=== PATIENT | female | born 1995 | race Caucasian/White ===

== ENCOUNTER 2019-11-08 09:48 | Outpatient (RCR) | payer OTHER, SELFPAY ==
[2019-10-23 17:38] VITALS: BP 111/80; PULSE 92
== END 2019-11-12 07:24 | disposition home or self-care (01) ==
LOC: ANHOBOP 09:48
PROVIDERS: Family Provider Obstetrics & Gynecology; PCP Family Medicine; Visit Provider Obstetrics & Gynecology
DX: O36.8130 Decreased fetal movements, third trimester, not applicable or unspecified (principal); Z3A.36 36 weeks gestation of pregnancy; Z3A.38 38 weeks gestation of pregnancy
CPT/HCPCS: 59025

== ENCOUNTER 2019-11-11 06:28 | Inpatient (IN) | payer OTHER, SELFPAY ==
[2019-11-11] VITALS (191 sets, daily range): BP systolic 80–133; BP diastolic 40–92; PULSE 68–164; TEMP 36.5–37.3; O2SAT 99–100; BMI 44.4
[2019-11-11 07:25] LABS: Basophils Percent Auto 0.2 % (0.2-1.2); Eosinophils Percent Auto 0.2 % (0-4.4); Hemoglobin 11.1 g/dL (12.0-15.0); Immature Granulocyte Absolute 0.04 K/mm3 (0.00-0.031); Immature Granulocyte Percent A 0.5 % (0-0.5); Lymphocytes Absolute Auto 2.15 K/mm3 (0.9-3.2); Lymphocytes Percent Auto 25.5 % (18.3-44.2); Mean Corpuscular HGB Conc 33.6 g/dl (32-36); Mean Corpuscular Hemoglobin 27.8 pg (26-34); Mean Corpuscular Volume 82.7 fl (80-100); Monocytes Absolute Auto 0.5 K/mm3 (0.1-0.6); Monocytes Percent Auto 6.4 % (2.6-8.5); Neutrophils Absolute Auto 5.7 K/mm3 (1.3-6.7); Neutrophils Percent Auto 67.2 % (45.5-73.1); Platelet Count Result 204 k/mm3 (150-375); Red Blood Count 3.99 M/mm3 (4.2-5.4); White Blood Count 8.4 K/mm3 (4.5-10.0)
--- NOTE | 2019-11-11 07:42 | WPDOBADMIT ---
Obstetrics - Admit Note Admission Note: record reviewed. No pertinent additions to the history and/or any subsequent changes in the physical findings that are not consistent with the expected course of the were found. Additions to the history and/or subsequent changes in the physical findings follow. G1 at 39+1 for induction of labor. Cervix 3/50/-2. AROM with scant fluid. IUPC placed easily. Continue pitocin. GBS negative.
[2019-11-11] MEDS: OXYTOCIN 30 UNITS/NS 500 ML 30 UNITS/500 ML BAG IV CONT (08:09)
[2019-11-11] MEDS: LACTATED RINGERS 1,000 ML 125 ML IV CONT ×3 (08:10→14:15)
--- NOTE | 2019-11-11 08:10 | LDADM ---
This patient, Joyce Brito, was admitted to Labor/Delivery/Recovery 104 on 11/11/19 at 06:28. Plans for labor, pain management and were discussed with patient. Patient/family oriented to hospital policies and general routines including ID bracelet, bed and alarms, visiting hours, pain management, procedures, bathroom and other care routines, personal items, smoking policy, room service/diet and guest tray routines, infant security routines, and visiting hours. Patient/Family are encouraged to report perceived risks to care and to ask questions if they do not understand what they are told or what they should do. See OBIX for further documentation.
--- NOTE | 2019-11-11 09:34 | WPDANESEPP ---
Anes - Eval Pre Procedure Procedure: Labor Epidural Date/Time: 11/11/19 09:34 Surgeon: alison Pre Op Diagnosis: iol Patient Data Age: 24 Gender: F Height: 1.7 m Weight: 128.64 kg Last Vital Signs Temp 37.1 C 11/11/19 09:27 Pulse 89 11/11/19 09:31 BP 99/46 L 11/11/19 09:31 Pulse Ox 100 11/11/19 09:32 Allergies Allergy/AdvReac Type Severity Reaction Status Date / Time Sulfa (Sulfonamide Allergy Unknown Hives Verified 10/23/19 13:32 Antibiotics) Home Medications Medication Instructions Recorded Confirmed Type PNV cmb#95-ferrous fumarate-FA 1 tablet PO DAILY 10/23/19 10/23/19 History [] Laboratory Tests 11/11/19 11/11/19 11/11/19 06:51 06:51 06:51 WBC 8.4 K/mm3 K/mm3 (4.5-10.0) RBC 3.99 M/mm3 L M/mm3 (4.2-5.4) Hgb 11.1 g/dL L g/dL (12.0-15.0) Hct 33.0 % L % (37.0-47.0) MCV 82.7 fl fl (80-100) MCH 27.8 pg pg (26-34) MCHC 33.6 g/dl g/dl (32-36) RDW 14.0 % % (11.5-14.5) Plt Count 204 k/mm3 k/mm3 (150-375) MPV 11.0 fl H fl (7.4-10.4) Immature Gran % (Auto) 0.5 % % (0-0.5) Neut % (Auto) 67.2 % % (45.5-73.1) Lymph % (Auto) 25.5 % % (18.3-44.2) [place] % (Auto) 6.4 % % (2.6-8.5) Eos % (Auto) 0.2 % % (0-4.4) Baso % (Auto) 0.2 % % (0.2-1.2) Lymph # (Auto) 2.15 K/mm3 K/mm3 (0.9-3.2) [place] # (Auto) 0.5 K/mm3 K/mm3 (0.1-0.6) Eos # (Auto) 0.0 K/mm3 K/mm3 (0-0.3) Baso # (Auto) 0.0 K/mm3 K/mm3 (0.0-0.1) Abs Immat Gran (auto) 0.04 K/mm3 H K/mm3 (0.00-0.031) Absolute Neuts (auto) 5.7 K/mm3 K/mm3 (1.3-6.7) Absolute Nucleated RBC 0.0 K/mm3 K/mm3 (0.0-0.012) Nucleated RBC % 0.0 % % (0.0-0.2) RPR Pending Blood Type O Positive Antibody Screen Negative Patient hx anesthesia problems: none Family hx anesthesia problems: none [facility] Past Medical History Medical History (Updated 11/11/19 @ 09:36 by Ana Ahuja CRNA) Anxiety IBS (irritable bowel syndrome) Morbid obesity Family History Family History Grandparent Diabetes mellitus Hypertension High cholesterol Grandparent Diabetes mellitus Social History Social History Smoking status: Former smoker Tobacco type: e-cigarettes/vaping Second hand tobacco smoke exposure: Yes Substance use: never Spiritual care concerns: No Exam Day of Procedure 11/11/19 09:34 Patient weight: morbidly obese Heart: regular rate and rhythm Lungs: normal air movement Airway: Mallampati scale class II and class III Neurological: alert and oriented
[2019-11-11 11:55] LABS: Rapid Plasma Reagin Non-Reactive (NonReactive)
[2019-11-11] MEDS: ONDANSETRON INJ 4 MG/2 ML VIAL IV PUSH (16:48)
--- NOTE | 2019-11-11 19:59 | PM.OBPRVD ---
OB - Delivery Note Procedure Delivery date: 11/11/19 Procedure: Induction method: AROM and per pitocin protocol Delivery monitor: external FHT, external uterine and internal uterine Route of delivery: Laceration description: Perineal - 2nd Degree Delivery repair: vicryl (2-0) Specimen: No Estimated blood loss (mL): 785 Anesthesia type: Epidural Disposition: floor Narrative: She had multiple small lacerations of perineum and periurethral that were bleeding while doing the repair. Visualization was difficult. laboratory development technician donned gloves to aid in visulaization and exposure then hemostasis achieved with sutures [place] Baby Date of : 11/11/19 Time of : 19:20 Weeks of gestation at delivery: 39 gender: Male Weight (pounds): 6 Weight (ounces): 6 presentation: vertex position: Right Occiput Anterior Placenta delivery description: Spontaneous cord vessel description: 3 Vessels and Clamped/Cut score one minute: 9 score five minutes: 9
[2019-11-11] MEDS: OXYTOCIN 30 UNITS/NS 500 ML 30 UNITS/500 ML BAG 125 UNITS IV CONT (20:31)
[2019-11-11] MEDS: WITCH HAZEL 40 PADS 1 PAD TOPICAL (22:58)
[2019-11-12] VITALS: BP 107/53; PULSE 110; RESP 14; TEMP 37.2; O2SAT 99
[2019-11-12] MEDS: IBUPROFEN 600 MG TABLET PO (02:30)
[2019-11-12 05:26] LABS: Hematocrit 25.5 % (37.0-47.0); Hemoglobin 8.8 g/dL (12.0-15.0)
--- NOTE | 2019-11-12 07:35 | PM.OBPNVD ---
OB - PN: Subj Subjective Date/time seen: 11/12/19 07:35 Patient comments: no complaints, pain well controlled and other (Lochia similar to menses) [place] baby status: doing well OB - PN: Obj Data Labs CBC & Chem 7: 11/12/19 05:06 Labs: Laboratory Results - last 24 hr 11/11/19 11/11/19 11/12/19 06:51 06:51 05:06 Hgb 8.8 L Hct 25.5 L RPR Non-reactive Blood Type O Positive Antibody Screen Negative OB - PN A/P Plan day: 1 (s/p vaginal delivery, doing well) Plan: routine care Time Spent With Patient Time: Total time spent is greater than 50% in coordination of care (as documented) at patient's floor/unit and/or counseling patient: Exam Const: General: no acute distress GI: Inspection: other (Fundus firm and nontender at umbilicus) GI Palp: Yes Soft to palpation and No Tenderness to palpation present (GI) Extrem: General: no edema
[2019-11-12] MEDS: DOCUSATE SODIUM 100 MG CAPSULE PO ×2 (07:46→15:57)
[2019-11-12] MEDS: POLYSACCHARIDE IRON COMPLEX 150 MG CAPSULE PO ×2 (07:46→15:56)
[2019-11-12] MEDS: MULTIVIT/MIN/PREN/FOL AC/IRON TABLET 1 TAB PO (07:46)
[2019-11-12] MEDS: LANOLIN (LANSINOH) 7.5 GM CREAM 1 APPLIC TOPICAL (07:47)
--- NOTE | 2019-11-12 07:51 | PM.OBDSVD ---
DS: Discharge Diagnosis Discharge Diagnosis (1) : Code(s): Z34.90 - Encounter for supervision of normal , unspecified, unspecified trimester Status: Acute OB - DS: Summary OB Procedures : None OB Procedures Intrapartum: Spontaneous Vag Delivery OB Procedures: : None Peripartum Data Delivery Method: Natural Vaginal Laceration description: Perineal - 2nd Degree complications: none Status at Discharge Functional status at discharge: independent ambulation Overall status at discharge: patient is progressing back to baseline Time Spent with Patient Time attestation: Total time spent providing and/or coordinating discharge services: Time spent: Less than 30 minutes DS: Data Data Completed and Pending Labs on day of discharge: Labs from last 24 hours 11/12/19 11/11/19 11/11/19 05:06 06:51 06:51 Hgb 8.8 L Hct 25.5 L RPR Non-reactive Blood Type O Positive Antibody Screen Negative Discharge Plan Discharge Attending physician on discharge: Danielle Gomez Discharging Clinician: Alisa Camejo Anticipated Discharge Date/Time: 11/13/19 12:00 Patient Disposition: Home, Self-Care Activity: may shower and pelvic rest Diet: regular Discharge Instructions: Education: Mom and Baby Guide Given to: Mother Follow-Up: Call your delivering provider's office for an appointment to be seen in: 6 Weeks Mom and baby should come to the [facility] for the follow-up appointment. Appointment Date/Time: November 15, 2019 at 11:00 am What to expect at your follow-up visit: Blood Pressure Check Physical Assessment Call [phone] if you are unable to keep your appointment time. BREAST CARE: 1. Wear a snug supportive bra. 2. For engorgement discomfort: Breast Feeding: A. Apply warm moist washcloths B. Express milk as needed to relieve engorgement C. Wear loose clothing Bottle Feeding: A. May apply ice packs 3. For sore nipples: A. Identify correct latch-on B. Apply warm moist washcloths before and after nursing C. Air dry nipples after nursing D. May apply Lansinoh cream to nipples EPISIOTOMY/PERINEAL CARE: 1. Until bleeding stops, use your erin bottle after urinating 2. Change your pad frequently throughout the day 3. You may take sitz baths several times a day (fill your bathtub with warm water and soak for 20 minutes.) Do NOT bathe in the water 4. No tub baths until seen by your physician - You may shower ACTIVITY: 1. Rest as much as possible. 2. Do not exercise or lift anything heavier than your baby (such as laundry or other children.) 3. Avoid stairs or driving as much as possible. 4. Do not put anything into the vagina. No douching, tampons, or sexual activity until seen by physician. NOTIFY PHYSICIAN IF YOU HAVE ANY QUESTIONS OR IF ANY OF THE FOLLOWING SYMPTOMS OCCUR: 1. If your episiotomy or incision becomes red, swollen, or more painful than what you have experienced in the hospital. 2. If your vaginal bleeding becomes foul smelling. 3. If your vaginal bleeding becomes more heavy than a period or if your bleeding changes from pink to bright red. However, you may pass an occasional walnut-sized clot once or twice for the first week . 4. If you experience a sharp, shooting pain in you calves. 5. If you discover a hard, reddened area on your breast or if you experience flu-like symptoms. DIET: 1. Eat regular, well-balanced meals. 2. Drink plenty of fluids daily. If , drink to thirst. Stand Alone Forms: General Discharge Information Follow-up/Referrals: Danielle Gomez MD [Physician] - 4 Weeks Discharge Medications: New polysaccharide iron complex 150 mg iron Capsule 150 mg PO BIDWM 30 Days Qty: 60 RF: 0 docusate sodium 100 mg Capsule 100 mg PO BID PRN (Leighann
[2019-11-12 08:20] VITALS: BP 86/49; PULSE 82; RESP 18; TEMP 36.9; O2SAT 98
--- NOTE | 2019-11-12 12:45 | PC.NURSE ---
Consulted with patient, mother reports infant is sleepy and does not make attempts to latch, once at breast does not suckle. Mother has been given a nipple shield to assist with latching. I Discussed nipple shield precautions and possible complications. Instructions given on application and cleaning of shield. Patient able to return demonstration on proper application of shield. Discussed the need to initiate pumping if infant continues to nurse with the shield. Patient verbalizes understanding. Reviewed feeding cues, frequencies, duration of feedings, feeding elimination flow sheet, and signs of adequate intake. Demonstrated stimulation techniques to wake for feeding. Assisted with infant to breast with shield. Reviewed positioning/alignment in cross cradle, holding breast in U hold and guided asymmetrical latch on. After several attempts infant was able to latch correctly. held nipple shield in his mouth and made no effort to suck. Small amount of formula to shield and allowed infant to suckle and returned to breast with no suckling noted. Advised mother to allow to attempt 10-15 minutes, mother/FOB will then supplement. Feeding plan will be to attempt for 10-15 minutes every three hours before if feeding cues noted, then supplement 15mls and pump for 15 minutes. Advised mother to initiate pumping. Mother has her own pump to use.
--- NOTE | 2019-11-12 13:30 | PC.NURSE ---
Instructions given on breast pump care and usage, pumping schedule, nipple care, and collection and storage of breast milk. Encouraged [id number], breast massage and manual expression to stimulate supply. Pumping log provided and reviewed. Assessed patient for correct flange size, placement and draw. Patient verbalizes and demonstrates understanding of instructions.
[2019-11-12 19:20] VITALS: BP 126/74; PULSE 108; RESP 20; TEMP 36.8
[2019-11-13 08:00] VITALS: BP 111/64; PULSE 101; RESP 18; TEMP 36.5
--- NOTE | 2019-11-13 10:40 | PM.OBPNVD ---
OB - PN: Subj Subjective Date/time seen: 11/13/19 10:40 OB - PN: Obj Data Labs CBC & Chem 7: 11/12/19 05:06 OB - PN A/P Plan day: 2 Plan: routine care and discharge home (Follow up 4 weeks) Time Spent With Patient Time: Total time spent is greater than 50% in coordination of care (as documented) at patient's floor/unit and/or counseling patient: Review of Systems Review of Systems: All systems reviewed & are unremarkable except as noted in HPI and below Exam Const: General: comfortable Chest: Breast/axilla inspection: normal inspection of the breasts Resp: Effort & Inspection: normal respiratory effort Cardio: Rate: regular rate GI: Auscultation: normal bowel sounds Other: Struggles with IBS. Currently a little constipated but did have a bm within the last hour. Psych: Appearance: grossly normal Affect: normal affect Attitude: cooperative Judgement: Good judgement present (Psych)
[2019-11-13] MEDS: POLYSACCHARIDE IRON COMPLEX 150 MG CAPSULE PO (11:56)
[2019-11-13] MEDS: MULTIVIT/MIN/PREN/FOL AC/IRON TABLET 1 TAB PO (11:56)
[2019-11-13] MEDS: DOCUSATE SODIUM 100 MG CAPSULE PO (11:56)
[2019-11-13] MEDS: WITCH HAZEL 40 PADS 1 PAD TOPICAL (11:57)
[2019-11-13] MEDS: BENZOCAINE 20% AER SPR (*SP) 56 GM CAN 1 SPRAY TOPICAL (11:57)
[2019-11-15 11:22] VITALS: BP 114/76; PULSE 109; RESP 20; TEMP 37.7; O2SAT 100
== END 2019-11-13 12:43 | disposition home or self-care (01) | DRG 807 ==
LOC: ANHLDR 06:34 → ANHOB2 23:26
PROVIDERS: Admitting Provider Obstetrics & Gynecology; PCP Family Medicine; Visit Provider Obstetrics & Gynecology
DX: O99.62 Diseases of the digestive system complicating childbirth (principal); Z37.0 Single live birth; Z3A.39 39 weeks gestation of pregnancy; O70.1 Second degree perineal laceration during delivery; O71.82 Other specified trauma to perineum and vulva; K58.9 Irritable bowel syndrome, unspecified; O99.214 Obesity complicating childbirth; E66.01 Morbid (severe) obesity due to excess calories; O99.344 Other mental disorders complicating childbirth; F41.9 Anxiety disorder, unspecified
CPT/HCPCS: 36415; 85014; 85018; 85025; 86592; 86850; 86900; 86901; A9270; J2405; J2590; J2795; J7120

== ENCOUNTER 2021-07-03 10:48 | Outpatient (CLI) | payer OTHER, SELFPAY ==
[2021-07-03 11:36] LABS: SARS-CoV-2 Ag Negative (Negative)
== END 2021-07-03 10:49 | disposition home or self-care (01) ==
PROVIDERS: PCP Family Medicine; Visit Provider Physician Assistant
DX: J02.9 Acute pharyngitis, unspecified (principal); Z20.822 Contact with and (suspected) exposure to COVID-19
CPT/HCPCS: 87426; C9803

== ENCOUNTER 2021-07-13 11:05 | Outpatient (CLI) | payer OTHER, SELFPAY ==
[2021-07-13 12:02] LABS: SARS-CoV-2 Ag Negative (Negative)
[2021-07-13 12:52] LABS: SARS-CoV-2 RNA PCR Positive (Negative)
== END 2021-07-13 11:06 | disposition home or self-care (01) ==
LOC: CHSLAB 11:07
PROVIDERS: PCP Physician Assistant; Visit Provider Physician Assistant
DX: U07.1 COVID-19 (principal)
CPT/HCPCS: 87426; C9803; U0003; U0005

== ENCOUNTER 2022-08-22 11:19 | Outpatient (CLI) | payer OTHER, SELFPAY ==
[2022-08-22 13:09] LABS: Beta HCG Quantitative < 2.39 mIU/ML
[2022-08-28 05:08] LABS: Progesterone 0.5 ng/mL (***)
== END 2022-08-22 11:20 | disposition home or self-care (01) ==
LOC: ANHLAB 11:24
PROVIDERS: PCP Physician Assistant; Visit Provider Obstetrics & Gynecology
DX: O20.0 Threatened abortion (principal); Z3A.00 Weeks of gestation of pregnancy not specified
CPT/HCPCS: 36415; 84144; 84702

== ENCOUNTER 2022-09-16 12:19 | Outpatient (CLI) | payer OTHER, SELFPAY ==
[2022-09-20 05:07] LABS: Progesterone 16.4 ng/mL (***)
== END 2022-09-16 12:20 | disposition home or self-care (01) ==
PROVIDERS: PCP Physician Assistant; Visit Provider Advanced Practice Midwife
DX: N92.6 Irregular menstruation, unspecified (principal)
CPT/HCPCS: 36415; 84144

== ENCOUNTER 2022-10-15 07:13 | Outpatient (CLI) | payer OTHER, SELFPAY ==
[2022-10-20 04:04] LABS: Progesterone 9.5 ng/mL (***)
== END 2022-10-15 07:14 | disposition home or self-care (01) ==
LOC: ANHLAB 07:15
PROVIDERS: PCP Physician Assistant; Visit Provider Advanced Practice Midwife
DX: Z31.9 Encounter for procreative management, unspecified (principal)
CPT/HCPCS: 36415; 84144

== ENCOUNTER 2022-11-13 06:44 | Outpatient (CLI) | payer OTHER, SELFPAY ==
[2022-11-17 05:56] LABS: Progesterone 26.2 ng/mL (***)
== END 2022-11-13 06:45 | disposition home or self-care (01) ==
LOC: ANHLAB 06:47
PROVIDERS: PCP Physician Assistant; Visit Provider Advanced Practice Midwife
DX: Z31.9 Encounter for procreative management, unspecified (principal)
CPT/HCPCS: 36415; 84144

== ENCOUNTER 2023-02-28 06:44 | Outpatient (RCR) | payer OTHER, SELFPAY ==
[2023-03-01 06:51] LABS: Progesterone 7.2 ng/mL (***)
== END 2023-05-27 23:59 | disposition home or self-care (01) ==
LOC: ANHLAB 06:44
PROVIDERS: PCP Physician Assistant; Visit Provider Advanced Practice Midwife
DX: N91.2 Amenorrhea, unspecified (principal)
CPT/HCPCS: 36415; 84144; 84702

== ENCOUNTER 2023-04-01 09:26 | Day surgery (SDC) | payer OTHER, SELFPAY ==
--- NOTE | ~2023-04-01 | US_ITS ---
US OB transvaginal DATE: 04/01/2023 11:11 INDICATION: Active heavy vaginal bleeding and cramping TECHNIQUE: Real-time imaging via transvaginal approach COMPARISON: None FINDINGS: The uterus measures approximately 11.8 cm height, 5.8 cm AP and 6.3 cm transverse dimension . There is an approximately 10 x 5 x 11 x 26 mm fluid collection in the very lower uterine segment endo metrial cavity, with a small focal area of echogenicity which might be pole and/or yolk sac. Th e endometrial ankle above this area measures up to 8.6 mm anteroposterior dimension. The findings are likely due to impending with retained products of a failed . No heartbeat is detected. No abnormal pelvic free fluid collection is detected. The ovaries are not visualized. IMPRESSION: Probable in process Reviewed, dictated and finalized at [facility]. Reviewed, dictated and finalized at [facility]. IMPRESSION: Probable in process
[2023-04-01 09:33] VITALS: BP 123/86; PULSE 115; RESP 18; TEMP 36.7; O2SAT 100
[2023-04-01 10:02] LABS: Basophils Percent Auto 0.5 % (0.2-1.2); Eosinophils Absolute Auto 0.1 K/mm3 (0-0.3); Eosinophils Percent Auto 1.3 % (0-4.4); Hematocrit 36.8 % (37.0-47.0); Hemoglobin 11.9 g/dL (12.0-15.0); Immature Granulocyte Absolute 0.02 K/mm3 (0.00-0.031); Immature Granulocyte Percent A 0.2 % (0-0.5); Lymphocytes Absolute Auto 1.99 K/mm3 (0.9-3.2); Lymphocytes Percent Auto 23.6 % (18.3-44.2); Mean Corpuscular HGB Conc 32.3 g/dl (32-36); Mean Corpuscular Hemoglobin 26.3 pg (26-34); Mean Corpuscular Volume 81.2 fl (80-100); Mean Platelet Volume 9.9 fl (7.4-10.4); Monocytes Absolute Auto 0.6 K/mm3 (0.1-0.6); Monocytes Percent Auto 6.9 % (2.6-8.5); Neutrophils Absolute Auto 5.7 K/mm3 (1.3-6.7); Neutrophils Percent Auto 67.5 % (45.5-73.1); Platelet Count Result 283 k/mm3 (150-375); Red Blood Count 4.53 M/mm3 (4.2-5.4); Red Cell Distribution Width 14.8 % (11.5-14.5); White Blood Count 8.5 K/mm3 (4.5-10.0)
[2023-04-01] MEDS: SODIUM CHLORIDE 0.9% IV 1,000 ML 999 ML IV CONT (10:03)
[2023-04-01] MEDS: MORPHINE SULFATE (*CRX) 4 MG/ML INJ IV PUSH (10:03)
[2023-04-01 10:12] LABS: Alanine Aminotransferase 16 U/L (6-35); Albumin Level 4.3 g/dL (3.5-5.1); Alkaline Phosphatase 94 U/L (38-126); Anion Gap 8 mmol/L (8-16); Aspartate Amino Transferase 21 U/L (14-36); Bilirubin,Total 0.5 mg/dL (0.2-1.3); Blood Urea Nitrogen 9 mg/dL (7-17); Calcium 8.9 mg/dL (8.4-10.2); Carbon Dioxide 25 mmol/L (22-30); Chloride 103 mmol/L (98-107); Estimated CRCL calculation 195 ml/min; Estimated Glomerular Filt Rate > 60; Glucose 106 mg/dL (65-110); Potassium 3.9 mmol/L (3.4-5.0); Sodium 136 mmol/L (137-145)
--- NOTE | 2023-04-01 10:22 | ED.GENADULT ---
HPI - General Adult General Chief complaint: Vaginal Bleeding Stated complaint: miscarriage Time Seen by Provider: 04/01/23 09:41 History of Present Illness HPI narrative: Joyce Brito is a 27 y/o female who presents with reports of being went to her scheduled OB appointment 5 days ago where she thought she was about 8 weeks and the ultrasound showed a non viable that estimated about 6 weeks. She states that she then scheduled a D&C for tomorrow with Dr. Cooper. She states that she started to have light vaginal bleeding 2 days ago and then started to have heavy bleeding/ passing large clots today with heavy cramping. Related Data Home Medications Medication Instructions Recorded Confirmed vit no.95-ferrous 1 tablet PO DAILY 10/23/19 10/23/19 fumarate 28 mg-folic acid 800 mcg tablet () Allergies Allergy/AdvReac Type Severity Reaction Status Date / Time Sulfa (Sulfonamide Allergy Unknown Hives Verified 04/01/23 10:01 Antibiotics) Review of Systems Review of Systems: CONSTITUTIONAL: Denies fever, chills, or sweats. EYES: Denies visual changes, redness, or discharge. ENT: Denies rhinorrhea, congestion, sore throat, or otalgia. CARDIOVASCULAR: Denies chest pain, palpitations, or edema. RESPIRATORY: Denies cough or dyspnea. GASTROINTESTINAL: Complains of severe abdominal cramping, Denies nausea, vomiting, or diarrhea. GENITOURINARY: Denies dysuria or hematuria. SKIN: Denies rash or itching. MUSCULOSKELETAL: Denies back pain, joint pain, or myalgia. NEUROLOGIC: Denies headache, numbness, dizziness, or weakness. PSYCHIATRIC: Denies anxiety or depression. PMFSH Past Medical History Medical History Anxiety IBS (irritable bowel syndrome) Morbid obesity Family History Family History Grandparent Diabetes mellitus Hypertension High cholesterol Grandparent Diabetes mellitus Social History Social History Smoking status: Former smoker Tobacco type: e-cigarettes/vaping Second hand tobacco smoke exposure: Yes Substance use: never Spiritual care concerns: No Exam Narrative: GENERAL: Well-appearing, well-nourished, appears to be uncomfortable HEAD: Normocephalic, atraumatic. EYES: PERRLA and EOMI. ENT: Nares clear, no rhinorrhea or epistaxis. Mucous membranes moist. Oropharynx without tonsillar hypertrophy exudate or other lesions. NECK: Supple. No adenopathy or masses. No carotid bruits or JVD CHEST: Clear to auscultation. No respiratory distress. No wheezes rales or rhonchi HEART: Regular rate and rhythm. No murmur heard. Normal peripheral pulses. ABDOMEN: Soft, nontender, nondistended, normal active bowel sounds. EXTREMITIES: Normal range of motion. No edema. SKIN: Warm, dry, no rash. NEURO: No focal deficits. Alert and oriented x3. PSYCH: Normal mood and affect. Course Vital Signs Vital signs: Vital Signs Temperature 36.7 C 04/01/23 09:33 Pulse Rate 115 H 04/01/23 09:33 Respiratory Rate 18 04/01/23 09:33 Blood Pressure 123/86 04/01/23 09:33 Pulse Oximetry 100 04/01/23 09:33 Oxygen Delivery Room Air 04/01/23 09:33 Temperature 36.7 C 04/01/23 09:33 Pulse Rate 115 H 04/01/23 09:33 Respiratory Rate 18 04/01/23 09:33 Blood Pressure 123/86 04/01/23 09:33 Pulse Oximetry 100 04/01/23 09:33 Oxygen Delivery Room Air 04/01/23 09:33 Medical Decision Making MDM Narrative Medical decision making narrative: On exam pt is noted to be uncomfortable, she reports passing a golf ball sized clot this morning and once here she passed tissue that we were able to collect and send to pathology Patient with continued cramping and discomfort She does not believe she has needed Rhogam before Plan to hydrate/ treat her pain/ check basic labs
--- NOTE | 2023-04-01 10:44 | PC.NURSE ---
Products of conception collected, hand delivered to prosthetic technician [facility]
[2023-04-01] MEDS: fentaNYL CITRATE INJ (*CRX) 100 MCG/2 ML VIAL 50 MCG IV PUSH (11:42)
[2023-04-01 13:10] VITALS: BP 118/72; PULSE 93; RESP 16; TEMP 36.6; O2SAT 100
[2023-04-01] MEDS: LACTATED RINGERS 1,000 ML 30 ML IV CONT (13:10)
--- NOTE | 2023-04-01 13:15 | WPDANESEPPF ---
Anes - Initial Pre Proc Eval Procedure: Operation Date: 04/01/23 14:15 Proposed Procedures p Suction Dilatation and Curettage - Ifeoma Cooper MD Date/Time: 04/01/23 13:15 Surgeon: Ifeoma Cooper MD Pre Op Diagnosis: miscarriage Patient Data Age: 27 Gender: F Height: 1.7 m Weight: 131.09 kg Last Vital Signs Temp 36.7 C 04/01/23 09:33 Pulse 115 H 04/01/23 09:33 Resp 18 04/01/23 09:33 BP 123/86 04/01/23 09:33 Pulse Ox 100 04/01/23 09:33 O2 Del Method Room Air 04/01/23 09:33 Allergies Allergy/AdvReac Type Severity Reaction Status Date / Time Sulfa (Sulfonamide Allergy Unknown Hives Verified 04/01/23 10:01 Antibiotics) Home Medications Medication Instructions Recorded Confirmed Type vit no.95-ferrous 1 tablet PO DAILY 10/23/19 10/23/19 History fumarate 28 mg-folic acid 800 mcg tablet () docusate sodium 100 mg capsule 100 mg PO BID PRN Constipation 30 11/13/19 Rx days polysaccharide iron complex 150 mg 150 mg PO BIDWM 30 days #60 caps 11/13/19 Rx iron capsule Laboratory Tests 04/01/23 09:54 WBC 8.5 K/mm3 (4.5-10.0) RBC 4.53 M/mm3 (4.2-5.4) Hgb 11.9 L D g/dL (12.0-15.0) Hct 36.8 L % (37.0-47.0) MCV 81.2 fl (80-100) MCH 26.3 pg (26-34) MCHC 32.3 g/dl (32-36) RDW 14.8 H % (11.5-14.5) Plt Count 283 k/mm3 (150-375) MPV 9.9 fl (7.4-10.4) Immature Gran % (Auto) 0.2 % (0-0.5) Neut % (Auto) 67.5 % (45.5-73.1) Lymph % (Auto) 23.6 % (18.3-44.2) [place] % (Auto) 6.9 % (2.6-8.5) Eos % (Auto) 1.3 % (0-4.4) Baso % (Auto) 0.5 % (0.2-1.2) Lymph # (Auto) 1.99 K/mm3 (0.9-3.2) [place] # (Auto) 0.6 K/mm3 (0.1-0.6) Eos # (Auto) 0.1 K/mm3 (0-0.3) Baso # (Auto) 0.0 K/mm3 (0.0-0.1) Abs Immat Gran (auto) 0.02 K/mm3 (0.00-0.031) Absolute Neuts (auto) 5.7 K/mm3 (1.3-6.7) Absolute Nucleated RBC 0.0 K/mm3 (0.0-0.012) Nucleated RBC % 0.0 % (0.0-0.2) Sodium 136 L mmol/L (137-145) Potassium 3.9 mmol/L (3.4-5.0) Chloride 103 mmol/L (98-107) Carbon Dioxide 25 mmol/L (22-30) Anion Gap 8 mmol/L (8-16) BUN 9 mg/dL (7-17) Creatinine 0.50 L mg/dL (0.7-1.0) Estim Creat Clear Calc 195 ml/min Estimated GFR > 60 (59 - ) Glucose 106 mg/dL (65-110) Calcium 8.9 mg/dL (8.4-10.2) Total Bilirubin 0.5 mg/dL (0.2-1.3) AST 21 U/L (14-36) ALT 16 U/L (6-35) Alkaline Phosphatase 94 U/L (38-126) Total Protein 8.0 g/dL (6.3-8.2) Albumin 4.3 g/dL (3.5-5.1) Beta HCG, Quant 8699.70 mIU/ML Blood Type O Positive Antibody Screen Negative Screen Not Reportable Baby's Blood Type Not Reportable Baby's YANE Not Reportable Doses of RhIg Required 0 Patient hx anesthesia problems: none Family hx anesthesia problems: post op nausea/vomiting Results Review: All pre-operative results and documents have been reviewed as part of the pre-operative evaluation. [facility] Past Medical History Medical History Anxiety IBS (irritable bowel syndrome) Morbid obesity Family History Family History Grandparent Diabetes mellitus Hypertension High cholesterol Grandparent Diabetes mellitus Social History Social History Smoking status: Former smoker Tobacco type: e-cigarettes/vaping Second hand tobacco smoke exposure: Yes Substance use: never Spiritual care concerns: No Anes - Eval Final PreProcedure Day of Procedure 04/01/23 13:15 Patient weight: morbidly obese Heart: regular rate and rhythm Lungs: clear to auscultation Airway: Mallampati scale class II Neurological: alert and oriented Last oral intake: >/= 8 hours ASA cla
--- NOTE | 2023-04-01 13:19 | PM.IMHP ---
H&P: HPI History of Present Illness Date/Time: 04/01/23 13:19 Chief Complaint: Vaginal bleeding Narrative: This patient is a 27-year-old multi with incomplete miscarriage, vaginal bleeding-hemorrhage, severe pain. We agreed to perform suction D&C. She understands there is risk. She understands the procedure. She understands injuries may occur that result in hospitalization, more surgery, and severe illness. She denies any nausea, vomiting, i fever, chills. She denies any chest pain or shortness of breath Review of Systems Review of Systems: All systems reviewed & are unremarkable except as noted in HPI and below Constitutional: Constitutional: Denies chills, Denies fatigue, Denies fever(s) and Denies weakness Eyes: Eyes: Denies blurry vision, Denies change in vision, Denies loss of peripheral vision, Denies loss of vision, Denies other visual disturbances and Denies eye pain ENT: Denies vertigo, Denies dizziness, Denies hearing loss, Denies mouth pain, Denies nasal obstruction, Denies neck mass and Denies neck pain Cardiovascular: Cardiovascular: Denies chest pain, Denies diaphoresis, Denies syncope, Denies leg edema and Denies dyspnea Respiratory: Respiratory: Denies chest congestion, Denies cough, Denies hemoptysis, Denies dyspnea and Denies wheezing Gastrointestinal: Gastrointestinal: Denies abdominal pain, Denies constipation, Denies diarrhea, Denies nausea and Denies vomiting Genitourinary: Genitourinary: Denies hematuria, Denies change in libido, Denies nocturia, Denies genital lesions, Denies flank pain and Denies urinary urgency Musculoskeletal: Musculoskeletal: Denies abnormal gait, Denies back pain, Denies myalgias, Denies arthralgias, Denies joint swelling, Denies muscle weakness and Denies neck pain Integumentary/Breasts: Skin/Breast: Denies swelling, Denies breast pain, Denies breast mass, Denies dry skin, Denies nipple discharge, Denies unusual bruising and Denies jaundice Neurologic: Denies Neuro-related abnormal movements, Denies Abnormal speech present, Denies abnormal gait, Denies behavioral changes, Denies confusion, Denies vertigo, Denies dizziness, Denies syncope, Denies loss of vision, Denies memory loss, Denies convulsions and Denies weakness Psychiatric: Psychiatric: Denies abnormal sleep pattern, Denies behavioral changes, Denies change in libido, Denies confusion, Denies depression, Denies anhedonia and Denies memory loss Endocrine: Endocrine: Reports no additional endocrine complaints, Denies change in libido and Denies fatigue Hematologic/Lymphatic: Hematologic/Lymphatic: Reports no additional hematologic/lymphatic complaints Allergic/Immunologic: Allergic/Immunologic: Reports no additional allergic/immunologic complaints and Denies wheezing PMFSH Past Medical History Medical History Anxiety IBS (irritable bowel syndrome) Morbid obesity Family History Family History Grandparent Diabetes mellitus Hypertension High cholesterol Grandparent Diabetes mellitus Social History Social History Smoking status: Former smoker Tobacco type: e-cigarettes/vaping Second hand tobacco smoke exposure: Yes Substance use: never Spiritual care concerns: No Meds Home Medications and Allergies Home Medications Medication Instructions Recorded Confirmed Type vit no.95-ferrous 1 tablet PO DAILY 10/23/19 04/01/23 History fumarate 28 mg-folic acid 800 mcg tablet () docusate sodium 100 mg capsule 100 mg PO BID PRN Constipation 30 11/13/19 04/01/23 Rx days polysaccharide iron complex 150 mg 150 mg PO BIDWM 30 days #60 caps 11/13/19 04/01/23 Rx iron capsule Allergies Allergy/AdvReac Type Severity Reaction Status Date / Time Sulfa (Sulfonamide Allergy Unknown Hives Verified 04/01/23 13:19
--- NOTE | 2023-04-01 13:21 | WPDHPUPDATE1 ---
History and Physical Update Update Date/Time: 04/01/23 13:21 History and Physical has been reviewed, including an updated exam of the patient. There are NO changes in the patient's condition. Risks, benefits, and alternatives have been discussed and questions answered. Patient agrees to proceed with procedure.
[2023-04-01] MEDS: ceFAZolin 3 GM/D5W 100 ML 100 ML IVPB (13:36)
[2023-04-01 13:56] VITALS: BP 100/55; PULSE 94; RESP 12; O2SAT 100
--- NOTE | 2023-04-01 14:00 | SUR.OPER ---
Specimen given to JOSH Goldstein. Received in lab at 1357 by Bobby. Specimen sent fresh for genetic studies
--- NOTE | 2023-04-01 14:01 | W.PM.PROC2 ---
Procedure Note - Detailed Date of Procedure 04/01/23 Pre-op Diagnosis miscarriage - Incomplete Post-op Diagnosis Same Procedure Performed Suction D&C Surgeon Ifeoma Cooper MD Anesthesia MAC Indications missed Findings normal-appearing vulva vagina and cervix to. Moderate amount of products conception within the uterus. 8 cm uterus, some products conception at cervical os Description of Procedure the patient was taken the operating room. She was prepped and draped in dorsal lithotomy position after induction of mac anesthesia. A speculum was placed in the vagina. Cervix grasped with tenaculum. The cervix was dilated to about 1 cm Using Orozco dilators. A 8. Maldivian curved curette was used to perform suction D&C. The curette was introduced and vacuum was applied. The curette was removed over all surfaces of the intrauterine cavity multiple times. This was done until all the surfaces were clear and had the familiar grainy texture they can be felt through the instrument. A sharp curette was then used to curettage all the surfaces. The suction cup was then reapplied 1 more time to remove any debris. The instruments were removed. The speculum and tenaculum were removed. The patient tolerated the procedure well. She was taken recovery room stable condition. Estimated Blood Loss 50 Drains No Packing No Pathology Yes Complications No immediate complications Condition Stable Disposition PACU
[2023-04-01] MEDS: fentaNYL CITRATE INJ (*CRX) 100 MCG/2 ML VIAL 25 MCG IV PUSH ×2 (14:06→14:29)
[2023-04-01 14:25] VITALS: BP 123/71; PULSE 89; RESP 20
[2023-04-01 14:55] VITALS: BP 113/67; PULSE 90; RESP 20
[2023-04-01 15:25] VITALS: BP 124/70; PULSE 94; RESP 20
== END 2023-04-01 15:30 | disposition home or self-care (01) ==
LOC: ANHED 12:34 → ANHSURGERY 13:12
PROVIDERS: Emergency Medicine; Emergency Provider Nurse Practitioner Family; PCP Physician Assistant; Visit Provider Obstetrics & Gynecology
PROC: (CPT 59812; principal; 2023-04-01 14:15)
DX: O03.4 Incomplete spontaneous abortion without complication (principal); Z87.891 Personal history of nicotine dependence
CPT/HCPCS: 59812; 36415; 76817; 80053; 84702; 85025; 85461; 86850; 86900; 86901; 88264; 88305; 96361; 96374; 96375; 99285; J0690; J2250; J2270; J2704; J3010; J7030; J7120

== ENCOUNTER 2025-04-05 07:09 | Outpatient (CLI) | payer OTHER, SELFPAY ==
--- OUTSIDE RECORDS SUMMARY | 2025-04-05 07:14 | XMS_ITS | Clinical Summary ---
Author Organization [facility] Address [address] [place] [address] Phone Care Team Providers Care Geosciences Faculty Member Name Role Phone Drew Alston MD Primary Care Provider [phone] Allergies Active Allergy Reactions Criticality Noted Date Comments Sulfamethoxazole-Trimethoprim Unknown 2016 Sulfa Antibiotics Unknown 07/17/2016 Medications folic acid (FOLVITE) 400 MCG Tablet Take 400 mcg by mouth daily. Active escitalopram (LEXAPRO) 10 MG Tablet Take 10 mg by mouth daily. Active ketorolac (TORADOL) 10 MG Tablet Take 1 Tablet by mouth every 6 hours as needed for Moderate or more severe pain. 20 Tablet 08/18/2024 Active ondansetron (ZOFRAN) 4 MG Tablet Take 1-2 Tablets by mouth every 8 hours as needed for Nausea - 1st line. 10 Tablet 08/18/2024 Active Active Problems Problem Noted Date Diagnosed Date Flank pain 09/06/2016 Immunizations Immunization Administration Dates Next Due Influenza Vaccine greater than 3 yrs 04/14/2016 Family History Medical History Relation Name Comments Diabetes Maternal Grandmother Diabetes Paternal Grandfather Hypertension Paternal Grandfather Relation Name Status Comments Maternal Grandmother Paternal Grandfather Social History Tobacco Use Types Packs/Day Years Used Date Smoking Tobacco: Never Smokeless Tobacco: Never Tobacco Cessation:Counseling Given: No Alcohol Use Standard Drinks/Week Comments Yes 0 (1 standard drink = 0.6 oz pur e alcohol) Occasional Sexually Active Control Partners Comments Yes Male Comments No Sex and Gender Information Value Date Recorded Sex Assigned at Not on file Legal Sex Female 4:33 PM [employer] Gender Identity Not on file Sexual Orientation Not on file Last Filed Vital Signs Vital Sign Reading Time Taken Comments Blood Pressure 109/60 08/18/2024 3:00 PM [employer] Pulse 65 08/18/2024 3:00 PM [employer] Temperature 36.6 C (97.9 F) 08/18/2024 11:16 AM [employer] Respiratory Rate 16 08/18/2024 3:00 PM [employer] Oxygen Saturation 100% 08/18/2024 3:00 PM [employer] Inhaled Oxygen Concentration - - Weight 127.9 kg (282 lb) 08/18/2024 11:16 AM [employer] Height 170.2 cm (5' 7) 08/18/2024 11:16 AM [employer] Body Mass Index 44.17 08/18/2024 11:16 AM [employer] Plan of Treatment Health Maintenance Due Date Last Done Comments Hepatitis C Virus (HCV) Screening 1993 Hepatitis B Immunization (1 of 3 - 19+ 3-dose series) 2012 Pap Smear 2014 Human Papillomavirus (HPV) Immunization (1 - 3-dose SCDM series) 2020 Cervical Cancer Screening (CCS) 09/18/2023 HPV/Cotest 09/18/2023 Influenza Immunization (#1) 2025 12/0 08/2018, 02/25/2017, 04/14/2016 SARS-COV-2 Immunization ( season) 2025 Respiratory Syncytial Virus (RSV) Immunization (Adult) (1 - 1-dose 75+ series) 2068 DTaP/Tdap/Td Immunization Discontinued 2019, 02/25/2017 TdaP Immunization Completed 09/25/2019, 02/25/2017 Meningococcal Immunization (ACWY) Aged Out No longer eligible based on patient's age to complete this topic Pneumococcal Immunization Combined Aged Out No longer eligible based on patient's age to complete this topic Rotavirus Immunization Aged Out No lo nger eligible based on patient's age to complete this topic Insurance [facility] Care Teams Geosciences Faculty Member Relationship Specialty Start Date End Date Drew Alston MD [address] [place] [phone] PCP - General Family Medicine 07/17/16
[2025-04-05 08:58] LABS: Beta HCG Quantitative < 2.39 mIU/ML
== END 2025-04-05 07:10 | disposition home or self-care (01) ==
LOC: ANHLAB 07:12
PROVIDERS: PCP Physician Assistant; Visit Provider Obstetrics & Gynecology
DX: N91.2 Amenorrhea, unspecified (principal)
CPT/HCPCS: 36415; 84702